=== PATIENT | male | born 1985 | race American Indian/Alaskan Native ===

== ENCOUNTER 2017-05-15 13:44 | Emergency (ER) | payer SELFPAY ==
[2017-05-15] MEDS ORDERED: TORADOL IV ONE (15:57)
[2017-05-15] MEDS ORDERED: ZOFRAN IV ONE ×2 (15:57→20:07)
[2017-05-15] MEDS ORDERED: NACL 0.9% 1000 ML 1,000 ML IV ONE (16:02)
--- NOTE | 2017-05-15 16:02 | Emergency Department Report ---
Blank Doc - Documentation Documentation: Patient is a 31-year-old [place] male who is presenting with right sided abdominal pain since yesterday. Patient states this is a sharp pain at the level of the umbilicus on the right is no rebound or guarding on exam. Patient states he has had some nausea try to have a bowel movement that did not relieve the pain however he did have some blood in in the in the toilet. Patient is denying any fever does have some mild loss of appetite. Patient will have laboratory studies done and a CT abdomen with IV contrast will be done as well patient also be given some IV fluids for his tachycardia
[2017-05-15 16:35] LABS: Basophils # (Auto) 0.1 K/mm3 (0.0-0.1); Basophils % (Auto) 0.7 % (0.0-1.8); Eosinophils % (Auto) 0.5 % (0.0-4.3); Hematocrit 41.2 % (35.5-45.6); Hemoglobin 13.5 gm/dl (11.8-15.2); Lymphocytes # (Auto) 1.8 K/mm3 (1.2-5.4); Lymphocytes % (Auto) 20.7 % (13.4-35.0); Mean Corpuscular HGB Conc 33 % (32-34); Mean Corpuscular Volume 71 fl (84-94); Monocytes # (Auto) 0.7 K/mm3 (0.0-0.8); Monocytes % (Auto) 8.1 % (0.0-7.3); Platelet Count 337 K/mm3 (140-440); Red Blood Count 5.81 M/mm3 (3.65-5.03); Red Cell Distribution Width 14.4 % (13.2-15.2)
--- NOTE | 2017-05-15 16:40 | Emergency Department Report ---
ED Abdominal Pain HPI - General Chief Complaint: Abdominal Pain Stated Complaint: ABDOMINAL PAIN Time Seen by Provider: 05/15/17 15:45 Source: patient, family Mode of arrival: Ambulatory Limitations: No Limitations - History of Present Illness Initial Comments: Patient care with family member reports abdominal pain 2 days. He reports pain is sharp. Denies any change in bowel movement reports nausea and vomiting. Last time he vomited was this morning. Patient is having right- sided pain. Reports nausea and vomiting in and some blood in stool 1. Denies any fever. Denies any fever, urinary burning and frequency urgency. Denies any back pain. Abdominal pain is 6 out of 10 and crampy and achy. No over-the- counter medication taken for pain. Patient denies any medical problems MD Complaint: abdominal pain, other (nausea and vomiting) Onset/Timin -: days(s) Location: periumbilical, RUQ Radiation: none Migration to: no migration Severity scale (0 -10): 6 Quality: cramping Consistency: intermittent Worsens With: nothing Context: other (unknown) Associated Symptoms: nausea, vomiting, hematochezia. denies: diarrhea, fever, chills, constipation, dysuria, hematemesis, melena, hematuria, anorexia, syncope Treatments Prior to Arrival: other (none) - Related Data Allergies Allergy/AdvReac Type Severity Reaction Status Date / Time No Known Allergies Allergy Verified 05/15/17 13:58 ED Review of Systems ROS: Stated complaint: ABDOMINAL PAIN Other details as noted in HPI Comment: All other systems reviewed and negative Constitutional: no symptoms reported Eyes: denies: eye pain, vision change ENT: denies: throat pain Respiratory: no symptoms reported Cardiovascular: denies: chest pain, palpitations, dyspnea on exertion, edema, syncope, paroxysmal nocturnal dyspnea Gastrointestinal: abdominal pain, nausea, vomiting, hematochezia. denies: diarrhea, constipation, hematemesis, melena Genitourinary: denies: dysuria, hematuria, testicular pain, testicular mass Musculoskeletal: denies: back pain, joint swelling, arthralgia, myalgia Skin: denies: rash Neurological: denies: headache, weakness, numbness, paresthesias, confusion, abnormal gait, vertigo ED Past Medical Hx - Past Medical History Previous Medical History?: No - Surgical History Past Surgical History?: No - Family History Family history: hypertension - Social History Smoking Status: Current Every Day Smoker Substance Use Type: Alcohol ED Physical Exam - General Limitations: No Limitations General appearance: alert, in no apparent distress - Head Head exam: Present: atraumatic, normocephalic, normal inspection - Eye Eye exam: Present: normal appearance, PERRL, EOMI. Absent: nystagmus, periorbital swelling, periorbital tenderness Pupils: Present: normal accommodation - ENT ENT exam: Present: normal exam, normal orophraynx, mucous membranes moist - Neck Neck exam: Present: normal inspection, full ROM. Absent: tenderness, meningismus, lymphadenopathy, thyromegaly - Respiratory Respiratory exam: Present: normal lung sounds bilaterally. Absent: respiratory distress, chest wall tenderness, accessory muscle use - Cardiovascular Cardiovascular Exam: Present: normal rhythm, tachycardia, normal heart sounds. Absent: systolic murmur, diastolic murmur - GI/Abdominal GI/Abdominal exam: Present: soft, normal bowel sounds. Absent: distended, tenderness, guarding, rebound, rigid, organomegaly, mass, bruit, pulsatile mass - Extremities Exam Extremities exam: Present: normal inspection, full ROM, other (no clubbing, cyanosis or edema. +2 pulses in all extremities and no neurovascular compromise ). Absent: tenderness, normal capillary refill, pedal edema, joint swelling, calf tenderness - Back Exam Back exam: Present: normal inspection, full ROM, other (ambulates without any difficulties). Absent: tenderness, CVA tenderness (R), CVA tenderness (L), muscle spasm, paraspinal tenderness, vertebral tenderness, rash noted - Neurological Exam Neurological exam: Present: alert, oriented X3, normal gait, reflexes normal. Absent: motor sensory deficit - Psychiatric Psychiatric exam: Present: normal affect, normal mood - Skin Skin exam: Present: warm, dry, intact, normal color. Absent: rash ED Course Vital Signs 05/15/17 05/15/17 05/15/17 13:58 20:03 21:02 Temperature 98.4 F Pulse Rate 107 H 67 86 Respiratory 16 18 18 Rate Blood Pressure 111/71 118/84 Blood Pressure 97/54 [Left] O2 Sat by Pulse 99 100 Oximetry Vital Signs 05/15/17 05/15/17 05/15/17 13:58 20:03 21:02 Temperature 98.4 F Pulse Rate 107 H 67 86 Respiratory 16 18 18 Rate Blood Pressure 111/71 118/84 Blood Pressure 97/54 [Left] O2 Sat by Pulse 99 100 Oximetry - Reevaluation(s) Reevaluation #1: 05/15/17 17:12 Patient is a 1 L of normal saline, Toradol 30 mg IV and Zofran 4 mg IV. Abdominal examination remains unchanged. Reevaluation #2: 05/15/17 19:43 Patient is stable awaiting in CT scan of the abdomen and pelvis. Liver enzymes are elevated. Abdominal pain has resolved. Reevaluation #3: 05/15/17 20:[address] Cortes is general surgery regarding patient's CT scan result and lab results. He advised me that patient will probably need a Whipple procedure and will need to be transferred out to a hospital that does these procedure. Patient stable. He received morphine 4 mg IV, Zofran 4 minute grams IV and another liter of IV fluid Reevaluation #4: 05/15/17 23:03 Patient is stable at present than pain is controlled. No nausea. Patient per Dr. Alvin Cortes was supposed to be transferred to [place] or [place] and I contacted transfer center and I spoke with GI doctor at [facility] along with also [facility] medicine team. I also spoke with [facility] transfer center and spoke with medicine team for transfer of patient and they reported that they have no beds in the hospital and they are on diversion. They will not be of that This patient tonight. I spoke with Dr. katerine Stevenson again and he directed me that to admit patient to the hospital and GI and himself will consult with the patient tomorrow and together they'll make a decision on needs the patient and if patient needs to be transferred then patient will be transferred to another hospital if he needs to have surgery for Whipple procedure. This was communicated with patient and he is in agreement. I spoke with Dr. Ramírez with the hospitalist and she accepted patient to hospital and she will be here to admit patient. Reevaluation #5: 05/15/17 23:39 [facility] medicine call back and accepted patient but reported that there and divergent so when they get a bed available patient's CAN come to hospital. - Consultations Consultation #1: 05/15/17 23:51 [facility] medicine doctor Hang accepted patient to medicine team. ED Medical Decision Making - Lab Data Result diagrams: 05/15/17 15:57 05/15/17 17:37 Lab Results 05/15/17 05/15/17 05/15/17 Range/Units 15:57 15:57 17:37 WBC 8.7 (4.5-11.0) K/mm3 RBC 5.81 H (3.65-5.03) M/mm3 Hgb 13.5 (11.8-15.2) gm/dl Hct 41.2 (35.5-45.6) % MCV 71 L (84-94) fl MCH 23 L (28-32) pg MCHC 33 (32-34) % RDW 14.4 (13.2-15.2) % Plt Count 337 (140-440) K/mm3 Lymph % (Auto) 20.7 (13.4-35.0) % [place] % (Auto) 8.1 H (0.0-7.3) % Eos % (Auto) 0.5 (0.0-4.3) % Baso % (Auto) 0.7 (0.0-1.8) % Lymph # 1.8 (1.2-5.4) K/mm3 [place] # 0.7 (0.0-0.8) K/mm3 Eos # 0.0 (0.0-0.4) K/mm3 Baso # 0.1 (0.0-0.1) K/mm3 Seg Neutrophils % 70.0 (40.0-70.0) % Seg Neutrophils # 6.1 (1.8-7.7) K/mm3 Sodium TNR 142 Potassium TNR 4.0 Chloride TNR 102.2 Carbon Dioxide TNR 26 Anion Gap TNR 18 BUN TNR 7 L Creatinine TNR 1.1 Estimated GFR TNR > 60 BUN/Creatinine Ratio TNR 6 Glucose TNR 108 H Calcium TNR 8.8 Total Bilirubin TNR 1.20 AST TNR 368 H ALT TNR 500 H Alkaline Phosphatase TNR 367 H Total Protein TNR 7.3 Albumin TNR 4.4 Albumin/Globulin Ratio TNR 1.5 Urine Color (Yellow) Urine Turbidity (Clear) Urine pH (5.0-7.0) Ur Specific [place] (1.003-1.030) Urine Protein (Negative) mg/dL Urine Glucose (UA) (Negative) mg/dL Urine Ketones (Negative) mg/dL Urine Blood (Negative) Urine Nitrite (Negative) Urine Bilirubin (Negative) Urine Urobilinogen (<2.0) mg/dL Ur Leukocyte Esterase (Negative) Urine WBC (Auto) (0.0-6.0) /HPF Urine RBC (Auto) (0.0-6.0) /HPF Urine Mucus /HPF 05/15/17 Range/Units Unknown WBC (4.5-11.0) K/mm3 RBC (3.65-5.03) M/mm3 Hgb (11.8-15.2) gm/dl Hct (35.5-45.6) % MCV (84-94) fl MCH (28-32) pg MCHC (32-34) % RDW (13.2-15.2) % Plt Count (140-440) K/mm3 Lymph % (Auto) (13.4-35.0) % [place] % (Auto) (0.0-7.3) % Eos % (Auto) (0.0-4.3) % Baso % (Auto) (0.0-1.8) % Lymph # (1.2-5.4) K/mm3 [place] # (0.0-0.8) K/mm3 Eos # (0.0-0.4) K/mm3 Baso # (0.0-0.1) K/mm3 Seg Neutrophils % (40.0-70.0) % Seg Neutrophils # (1.8-7.7) K/mm3 Sodium Potassium Chloride Carbon Dioxide Anion Gap BUN Creatinine Estimated GFR BUN/Creatinine Ratio Glucose Calcium Total Bilirubin AST ALT Alkaline Phosphatase Total Protein Albumin Albumin/Globulin Ratio Urine Color Dark yellow (Yellow) Urine Turbidity Clear (Clear) Urine pH 6.0 (5.0-7.0) Ur Specific [place] 1.028 (1.003-1.030) Urine Protein 30 mg/dl (Negative) mg/dL Urine Glucose (UA) Neg (Negative) mg/dL Urine Ketones Tr (Negative) mg/dL Urine Blood Neg (Negative) Urine Nitrite Neg (Negative) Urine Bilirubin Neg (Negative) Urine Urobilinogen 4.0 (<2.0) mg/dL Ur Leukocyte Esterase Neg (Negative) Urine WBC (Auto) 1.0 (0.0-6.0) /HPF Urine RBC (Auto) 2.0 (0.0-6.0) /HPF Urine Mucus 3+ /HPF - Radiology Data Radiology results: report reviewed CT scan of the abdomen and pelvis V contrast shows patient with abnormal dilatation/obstruction of the biliary ducts and pancreatic ducts. Gallbladder is also dilated. Appearance of pancreas is concerning for pancreatic head mass. Other potential causes of obstruction include cholecystolithiasis. Recommend further evaluation. Findings were discussed with Dr. Stevenson with the general surgeon - Medical Decision Making ED course: Patient presented to emergency room complaining of nausea vomiting with possible blood in stool and also right lateral abdominal pain to right upper quadrant pain. Patient with tenderness to palpate the right upper quadrant. He's had nausea and vomiting and an episode of low blood pressure he was given IV fluid normal saline 2 L and emergency room. Patient was also given Toradol 30 mg IV and Zofran 4 mg IV initially. He continues to have pain so he was given 4 mg of morphine IV and 4 mg of Zofran IV. After second liter fluid, patient blood pressure resolved. Patient's CT scan abnormal and lab work is abnormal with elevated liver enzymes and normal bilirubin. CT scan finding for biliary and pancreatic ducts dilatation with obstruction and appearance of what seems to be mass of the pancreatic head. After speaking with Dr. Casimiro Mckeon was the attending physician in emergency room, I spoke with Dr. Stevenson with the general surgeon on-call. He wanted me to call [facility] since there is a chance that patient could have a Whipple procedure and he should be worked up at one place. I spoke with [facility] and [facility] physicians include in [facility] GI specialist Dr. HATCH. [facility] is on diversion and they have no beds in their hospital per medicine team at both Hospital. I spoke with , and again and he is okay with patient being admitted under hospitalist service and GI consult in Dr. katerine Boggs to be consulted and will see patient in the morning and if patient needs to be transferred for surgery then they will transfer a patient. He said that surgery and GI will make decision together. I spoke with Dr. Stanley and gave her detailed information on patient labs, presentation, CT findings and she will see patient in emergency room. I discussed with her that Dr. Stevenson originally wanted patient to be transferred out but since there are no available beds for patient, I spoke with them again and he said that patient should be admitted by hospitalist and Dr. katerine Boggs and GI will follow patient and decide what is best for patient after evaluation. I went to discuss situation with patient and family and patient's family said she works at [facility] and she'll be able to get patient and so they're going to go to [facility] right now and I discussed with them that it is very That they follow-up at [facility] since they want to leave [facility]. I discussed with patient and family that we have service of gastroenterologists and general surgery here along with hospitalist to get admitted patient and also make decision to transfer the patient if patient needs to be transfer for procedure that is not able to be provided at this hospital. The family voiced understanding and but she was to be transferred to [facility] because they feel like this is the best thing for the patient at present. They voiced understanding and the patient diagnosis and the necessity little to go directly to [facility] from this hospital. I spoke with Dr. Alaniz with the attending physician in the emergency room at present. Patient is also aware that if he does not follow-up this could lead to severe infection in his blood, severe infection in his abdomen, missed diagnosis of cancer and eventually . [id number]: [place] medicine team call back and accepted patient to [place]. I discussed this with patient and family and they're willing to go to [place]. Patient awaited in bed to be transferred to [place]. ` Nurse informed to an hospitalist will be notified. Charge nurse notified that patient decided to wait to be transferred to [facility]. Critical care attestation.: If time is entered above; I have spent that time in minutes in the direct care of this critically ill patient, excluding procedure time. ED Disposition Clinical Impression: Dilated bile duct, Obstruction of bile duct, Pancreatic duct dilated, Pancreatic mass, Elevated liver enzymes Abdominal pain Qualifiers: Abdominal location: upper abdomen, unspecified Qualified Code(s): R10.10 - Upper abdominal pain, unspecified Nausea and vomiting Qualifiers: Vomiting type: unspecified Vomiting Intractability: non-intractable Qualified Code(s): R11.2 - Nausea with vomiting, unspecified Disposition: [id number]/TX-70 ANOTHER TYPE [facility]ARE Is pt being admited?: No Does the pt Need Aspirin: No Condition: Stable Referrals: PRIMARY CARE,MD [Primary Care Provider] - 3-5 Days
[2017-05-15 16:42] LABS: Mean Corpuscular Hemoglobin 23 pg (28-32)
[2017-05-15 17:18] LABS: Blood Urea Nitrogen TNR mg/dL (9-20)
[2017-05-15 17:20] LABS: Alanine Aminotransferase TNR units/L (7-56); BUN/Creatinine Ratio TNR; Calcium TNR mg/dL (8.4-10.2)
[2017-05-15 17:21] LABS: Albumin TNR g/dL (3.9-5); Hemolysis Index TNR
[2017-05-15 18:04] LABS: Bilirubin,Urine NEG (Negative); Blood,Urine NEG (Negative); Mucus,Urine 3+ /HPF; Nitrite,Urine NEG (Negative)
[2017-05-15 18:07] LABS: Color,Urine Dark Yellow (Yellow)
[2017-05-15 18:15] LABS: Alanine Aminotransferase 500 units/L (7-56); Albumin 4.4 g/dL (3.9-5); BUN/Creatinine Ratio 6; Blood Urea Nitrogen 7 mg/dL (9-20); Calcium 8.8 mg/dL (8.4-10.2); Hemolysis Index 4
[2017-05-15] MEDS ORDERED: MORPHINE IV ONE (20:07)
--- NOTE | 2017-05-15 20:24 | Cat Scan Report ---
FINAL REPORT PROCEDURE: CT ABDOMEN PELVIS W CON TECHNIQUE: Computerized axial tomography of the abdomen and pelvis was performed after the IV injection of iodinated nonionic contrast. HISTORY: right sided abd pain hematochezia COMPARISON: No prior studies are available for comparison. FINDINGS: Visualized lower thorax: No significant abnormality. Liver: Normal size and attenuation. Spleen: Normal size and attenuation. Gallbladder and biliary system: There is intrahepatic and extrahepatic biliary ductal dilatation. The gallbladder is distended. Common bile duct measures up to 11 millimeters in caliber. Pancreas: Pancreatic duct appears dilated. There is a rounded masslike area in the pancreatic head, which measures 3.2 x 4.1 x 3.6 centimeters Adrenals: Normal. Kidneys: Normal. GI tract: Appendix is visualized and does not appear inflamed. No bowel obstruction or acute inflammation is seen. Lymph nodes and mesentery: Normal. Vasculature: Normal. Bladder: Normal. Reproductive organs: Normal. Peritoneum: No free fluid. Musculoskeletal structures: No significant abnormality. Other: None. IMPRESSION: There is abnormal dilatation/obstruction of the biliary ducts and pancreatic duct. Gallbladder is also dilated. Appearance of the pancreas is concerning for a pancreatic head mass. Other potential causes of obstruction include choledocholithiasis. Recommend further evaluation. Findings were discussed with BEST Montoya by telephone at 7:17 p.m. central standard time on 05/15/2017
[2017-05-15] MEDS ORDERED: NACL 0.9% 1000 ML 1,000 ML ONE (21:11)
[2017-05-16] MEDS ORDERED: NACL 0.9% 1000 ML 1,000 ML IV ONE (00:47)
[2017-05-16] MEDS ORDERED: ZOFRAN IV ONE (00:49)
[2017-05-16 04:14] VITALS: BP 118/72
== END 2017-05-16 04:55 | disposition other institution (70) ==
LOC: ED 13:44
DX: R10.11 Right upper quadrant pain (principal); R11.2 Nausea with vomiting, unspecified; I10 Essential (primary) hypertension; F17.200 Nicotine dependence, unspecified, uncomplicated
CPT/HCPCS: 36415; 74177; 80053; 81001; 85025; 96361; 96374; 96375; 96376; 99284; J1885; J2270; J2405; J7030; Q9967